=== PATIENT | female | born 1990 | race Caucasian/White ===

== ENCOUNTER 2018-04-27 09:20 | Emergency (ER) | payer OTHER, MEDICAID, SELFPAY ==
[2018-04-27 09:24] VITALS: BP 115/74; PULSE 84; RESP 14; TEMP 36.6; O2SAT 99; BMI 36.9
--- NOTE | 2018-04-27 09:43 | ED.NAVMDI ---
HPI - Nausea/Vomiting/Diarrhea General Chief complaint: Nausea/Vomiting/Diarrhea Stated complaint: throwing up, diarrhea, cant hold fluid down Time Seen by Provider: 04/27/18 09:35 Source: patient Mode of arrival: ambulatory Limitations: no limitations History of Present Illness HPI Narrative: This is a 27-year-old female comes in with complaint of nausea and vomiting as well as several episodes of diarrhea. Patient states she had 1 episode of vomiting on Monday. Last night she started having more frequent vomiting and was up all night. She has also had multiple episodes of diarrhea. No black or bloody stools. She has some generalized abdominal discomfort. Patient states she does have a history of endometriosis and she has about 3 weeks into her menstrual cycle so she thought this may be part of the cause. She has also had cyclic vomiting the past and does continue to smoke marijuana so this may also be a contributing factor. Patient states she has felt chilled and body aches all over. No fevers that she is aware of. She states that no shortness of breath or chest pain. She has had some nasal congestion. normal urination with no dysuria, urgency or frequency. She has regular periods with no vaginal bleeding or discharge. Patient takes hydroxyzine for anxiety which she threw up last night. Related Data Home Medications Medication Instructions Recorded Confirmed hydroxyzine HCl 50 mg PO BEDTIME PRN 04/27/18 04/27/18 Previous Rx's Medication Instructions Recorded ondansetron HCl [Zofran] 4 mg PO QID PRN #10 tab 04/27/18 Allergies Allergy/AdvReac Type Severity Reaction Status Date / Time amoxicillin [AMOXICILLIN] Allergy Intermediate Verified 04/27/18 09:28 lactase [From DAIRY AID] Allergy Unknown UPSET Verified 04/27/18 09:28 STOMACH, PUFFY sertraline [From ZOLOFT] Allergy Unknown Verified 04/27/18 09:28 Sulfa (Sulfonamide Allergy Unknown Verified 04/27/18 09:28 Antibiotics) [SULFA (SULFONAMIDE ANTIBIOTICS)] gluten [GLUTEN] AdvReac Unknown STOMACH Verified 04/27/18 09:28 UPSET, PUFFY Review of Systems Review of Systems ROS Unobtainable: All systems reviewed & are unremarkable except as noted in HPI and below Constitutional Reports body ache(s), Reports chills, Denies fever(s), Denies lethargy and Denies weakness ENT Ears, Nose, Mouth, and Throat: Reports nasal congestion Cardiovascular Denies chest pain, Denies edema, Denies dyspnea and Denies dyspnea on exertion Respiratory Denies change in phlegm color, Denies chest congestion, Reports cough, Denies excessive phlegm production, Denies dyspnea, Denies dyspnea on exertion and Denies wheezing Gastrointestinal Gastrointestinal: Reports abdominal pain ( Generalized), Denies melena, Denies hematochezia, Denies change in bowel habits, Reports diarrhea, Reports nausea and Reports vomiting Genitourinary Denies abnormal vaginal bleeding, Denies hematuria, Denies urinary frequency, Denies dysuria, Denies flank pain, Denies urinary urgency and Denies vaginal discharge Neurologic Denies weakness Allergic/Immunologic Denies wheezing PFSH Social History alcohol intake: current substance use type: marijuana Exam Narrative Exam Narrative: GEN: well nourished, well appearing obese female, alert and oriented x 3, patient appears to be in mild distress. HEENT: Atraumatic, pupils are equal round reactive to light, extraocular movements are intact, nares are clear, TMs are clear with no fluid, there is no conjunctival pallor. Throat is clear without any exudates, erythema, tonsillar enlargement or uvular deviation HEART: Regular rate and rhythm without murmur, clicks, rubs. LUNGS:Lungs clear to auscultation, no wheezes, rales, crackles, chest moves symmetrically ABD:bowel sounds normal, soft, non-tender to palpate, no guarding, rebound, rigidity, no masses noted, no hepatosplenomegaly :No CVA tenderness MSCL: Non-tender, no muscle atrophy, muscles strength 5/5 upper and lower extremities, full range of motion, normal gait NEURO:CN 2-12 intact, sensation normal Initial Vital Signs Initial Vital Signs: Vital Signs Temperature 97.8 F 04/27/18 09:24 Pulse Rate 84 04/27/18 09:24 Respiratory Rate 14 04/27/18 09:24 Blood Pressure 115/74 04/27/18 09:24 Pulse Oximetry 99 04/27/18 09:24 Course Orders Ordered: Discontinued Medications Sodium Chloride (Normal Saline 0.9%) 1,000 mls @ 1,000 mls/hr IV BOLUS ONE Stop: 04/27/18 11:00 Last Infusion: 04/27/18 12:05 Dose: 0 mls/hr Admin: 04/27/18 10:26 Dose: 1,000 mls/hr Ondansetron HCl (Zofran) 4 mg IV NOW ONE Stop: 04/27/18 10:02 Last Admin: 04/27/18 10:27 Dose: 4 mg Vital Signs - 8 hr 04/27/18 12:06 Pulse Rate 84 Respiratory Rate 20 Blood Pressure 130/94 H Pulse Oximetry 97 MDM - Nausea/Vomiting/Diarrhea Lab Data Attestation: I reviewed the patient's lab results. Result diagrams: 04/27/18 10:09 04/27/18 10:09 Lab Results 04/27/18 04/27/18 04/27/18 Range/Units 10: 10:09 10:20 WBC 12.7 H (4.5-11.0) X10^3/uL RBC 4.73 (4.0-5.2) X10^6/uL Hgb 13.5 (12.0-16.0) g/dL Hct 40.6 (36-46) % MCV 85.8 (80-100) fL MCH 28.5 (26-34) PG MCHC 33.2 (30-36) % RDW 13.2 (11.6-14.8) % Plt Count 381 (150-400) X10^3/uL Neut % (Auto) 80.0 H (50-75) % Lymph % (Auto) 13.3 L (25-40) % [place] % (Auto) 6.0 (3-14) % Eos % (Auto) 0.2 L (2-4) % Baso % (Auto) 0.5 (0-2) % Neut # (Auto) 26544 H (0833-3843) /uL Lymph # (Auto) 1700 (7555-2657) /uL [place] # (Auto) 800 (0-900) /uL Eos # (Auto) 0 (0-450) /uL Baso # (Auto) 100 (0-100) /uL Sodium 139 (137-145) mmol/L Potassium 3.6 (3.4-5.1) mmol/L Chloride 104 (98-107) mmol/L Carbon Dioxide 25 (22-32) mmol/L BUN 10 (7-17) mg/dL Creatinine 0.70 (0.52-1.04) mg/dL Estimated GFR > 60.0 (>60) mL/min BUN/Creatinine Ratio 14.3 (6-22) Glucose 119 H (70-100) mg/dL Calcium 8.6 (8.4-10.2) mg/dL Total Bilirubin 0.7 (0.2-1.3) mg/dL AST 23 (14-36) IU/L ALT 27 (9-52) IU/L Alkaline Phosphatase 81 (38-126) U/L Total Protein 7.7 (6.3-8.2) g/dL Albumin 4.3 (3.5-5.0) g/dL Globulin 3.4 (1.7-4.1) g/dL Albumin/Globulin Ratio 1.3 (1.0-2.8) Lipase 34 (23-300) U/L Influenza A & B (PCR) Negative (Negative) Point of Care Testing Test Results Negative Urine Dip Bedside Urine Glucose Negative Bedside Urine Bilirubin - Negative Bedside Urine Ketone - Negative Urine Specific [place] 1.010 Bedside Urine Occult Blood - Negative Bedside Urine pH 8.0 Bedside Urine Protein + 30 Bedside Urine Urobilinogen - Negative Bedside Urine Nitrite - Negative Bedside Urine Leukocytes - Negative Esterase MDM Narrative Medical decision making narrative: patient is feeling better after some Zofran and fluids. We discussed that she should avoid marijuana if she has a history of cyclic vomiting. She can continue her hydroxyzine at and was given a script for several tablets of Zofran which she states she was out of. She is taking this regularly in the past. We also discussed having her follow up with primary care patient is working on establishing more locally issues [facility] but now lives at the [facility] and is moving to [place]. Discharge Plan Departure Patient Disposition: Home Clinical Impression: Nausea vomiting and diarrhea Discharge Date/Time: 04/27/18 12:06 Interventions: ED Discharge Assessment Last Done: 04/27/18 12:06 Instructions: DI for Vomiting -- Adult Activity Restrictions/Additional Instructions: Follow up with your primary care next 2-3 days if your symptoms are not improving. Call for an appointment. Continue zofran as needed, you may take 1 tablet every 6 hr as needed for nausea. You may continue home medications as prescribed. I would recommend stopping marijuana use if you have known cyclic vomiting as this can be known to induce symptoms. Return to the emergency department for fevers greater than 100.4, persistent vomiting, black or bloody stools, rapidly worsening abdominal pain, passing out, signs of dehydration or other new or concerning symptoms. Prescriptions: New ondansetron HCl [Zofran] 4 mg tablet 4 mg PO QID PRN (Reason: nausea and vomiting) Qty: 10 RF: 0 No Action hydroxyzine HCl 25 mg Tablet 50 mg PO BEDTIME PRN (Reason: Anxiety) RF: 0 Referrals: Yanira Marcelo ARNP [Primary Care Provider] -
[2018-04-27 10:25] LABS: Add Manual Diff / Slide Review NO; Basophils Absolute Auto 100 /uL (0-100); Basophils Percent Auto 0.5 % (0-2); Eosinophils Absolute Auto 0 /uL (0-450); Eosinophils Percent Auto 0.2 % (2-4); Hematocrit 40.6 % (36-46); Hemoglobin 13.5 g/dL (12.0-16.0); Lymphocytes Absolute Auto 1700 /uL (1100-4500); Lymphocytes Percent Auto 13.3 % (25-40); Mean Corpuscular HGB Conc 33.2 % (30-36); Mean Corpuscular Hemoglobin 28.5 PG (26-34); Mean Corpuscular Volume 85.8 fL (80-100); Monocytes Absolute Auto 800 /uL (0-900); Neutrophils Absolute Auto 10200 /uL (1500-7000); Platelet Count 381 X10^3/uL (150-400); Red Blood Cell Count 4.73 X10^6/uL (4.0-5.2); Red Cell Distribution Width 13.2 % (11.6-14.8); White Blood Cell Count 12.7 X10^3/uL (4.5-11.0)
[2018-04-27] MEDS: SODIUM CHLORIDE 0.9% 1,000 ML 1000 ML IV (10:26)
[2018-04-27] MEDS: ONDANSETRON 4 MG/2 ML INJ IV (10:27)
[2018-04-27 10:37] LABS: Alanine Aminotransferase 27 IU/L (9-52); Albumin 4.3 g/dL (3.5-5.0); Albumin Globulin Ratio 1.3 (1.0-2.8); Alkaline Phosphatase 81 U/L (38-126); Aspartate Aminotransferase 23 IU/L (14-36); BUN Creatinine Ratio 14.3 (6-22); Bilirubin Total 0.7 mg/dL (0.2-1.3); Blood Urea Nitrogen 10 mg/dL (7-17); Calcium 8.6 mg/dL (8.4-10.2); Carbon Dioxide 25 mmol/L (22-32); Chloride 104 mmol/L (98-107); Estimated Glomerular Filt Rate > 60.0 mL/min (>60); Globulin 3.4 g/dL (1.7-4.1); Glucose 119 mg/dL (70-100); HEMOLYSIS < 15 (0-50); Lipase 34 U/L (23-300); Potassium 3.6 mmol/L (3.4-5.1); Sodium 139 mmol/L (137-145); Total Protein 7.7 g/dL (6.3-8.2)
[2018-04-27 10:50] LABS: Influenza A and B by PCR Rapid Negative (Negative)
[2018-04-27 12:06] VITALS: BP 130/94; PULSE 84; RESP 20; O2SAT 97
== END 2018-04-27 12:06 | disposition home or self-care (01) ==
PROVIDERS: Emergency Provider Emergency Medicine; PCP Nurse Practitioner
DX: R11.2 Nausea with vomiting, unspecified (principal); R19.7 Diarrhea, unspecified
CPT/HCPCS: 36591; 80053; 81003; 81025; 83690; 85025; 87400; 96361; 96374; 99283; 99284; J2405